=== PATIENT | female | born 1960 | race Caucasian/White ===

== ENCOUNTER 2019-02-25 16:24 | Emergency (ER) | payer OTHER ==
[~2019-02-25] VITALS: Wt 64.0 kg
[~2019-02-25 16:24] MED LIST: CLIN300C10 PO; DIPH1TAB PO; IBUP-1542 PO; NAPR-688 PO; RANI150T35 PO
[2019-02-25] MEDS ORDERED: FAMOTIDINE 20 MG INJ IV STA (17:44)
[2019-02-25] MEDS ORDERED: LIDOCAINE/MYLANTA 40 ML BTL PO STA (17:44)
[2019-02-25] MEDS ORDERED: SOD CHLORIDE 0.9% 1,000 ML IV STA (17:44)
[2019-02-25] MEDS ORDERED: morphine 4 MG/ML VIAL IV STA (17:44)
[2019-02-25] MEDS ORDERED: ONDANSETRON 4 MG INJ IV STA (17:44)
[2019-02-25] MEDS ORDERED: BELLADONNA/PHENOBARBITAL TAB PO STA (17:44)
[2019-02-25] MEDS ORDERED: SOD CHLORIDE 0.9% 100 ML ONE (18:49)
[2019-02-25] MEDS ORDERED: IOHEXOL 300MG/ML 150 ML BTL ONE (18:49)
--- NOTE | 2019-02-25 21:04 | ERD ---
ER Documentation Chief Complaint Chief Complaint ap x 6 days HPI This is a 58-year-old female that states she has no past medical history. She presents to the emergency department complaining of abdominal pain for the past 6 days. She states the pain began in the epigastric region and was a retrosternal burning-like pain. The pain starts progressed to the right lower quadrant several hours prior to arrival. She had no fevers or shaking or chills. She denies any diarrhea or constipation. The patient quit tobacco 8 months ago. She denies any hemoptysis hematemesis or melanotic stools. No recent antibiotics or hospitalizations. No swelling of her lower extremities. She states that there is no alleviating or exacerbating factors to the pain. Is it is intermittent. She has not taken any analgesic medication prior to arrival. ROS All systems reviewed and are negative except as per history of present illness. Medications Home Meds Active Scripts Sucralfate* (Carafate*) 1 Gm Tab, 1 GM PO AC MEALS AND BEDTIME for 30 Days, TAB Prov:JANEL OCHOA MD 02/25/19 Naproxen* (Naproxen*) 500 Mg Tablet, 500 MG PO BID PRN for PAIN, #10 TAB Prov:PAPI DUKE DO 06/07/18 Diphenoxylate HCl/Atropine (Lomotil 2.5-0.025 mg Tablet) 1 Each Tablet, 1 TAB PO Q6H PRN for DIARRHEA, #10 TAB Prov:PAPI DUKE DO 06/07/18 Ibuprofen* (Motrin*) 600 Mg Tab, 600 MG PO Q6, #30 TAB Prov:SCAR VALLES PA-C 03/27/18 Clindamycin Hcl* (Clindamycin Hcl*) 300 Mg Capsule, 300 MG PO TID for 10 Days, CAP Prov:SCAR VALLES PA-C 03/27/18 Ranitidine Hcl* (Zantac*) 150 Mg Tablet, 150 MG PO BID PRN for EPIGASTRIC PAIN, #30 TAB Prov:HEIDY SHAFFER DO 11/26/17 Allergies Allergies: Coded Allergies: Penicillins (Verified Allergy, Unknown, 11/26/17) PMhx/Soc History of Surgery: Yes () Anesthesia Reaction: No Hx Neurological Disorder: No Hx Respiratory Disorders: No Hx Cardiac Disorders: No Hx Psychiatric Problems: No Hx 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 Well-nourished. HEENT:Normocephalic. Atraumatic.Pupils were equal round reactive to light. Moist mucous membranes.No tonsillar exudates. Neck: No nuchal rigidity. No lymphadenopathy. No posterior cervical spine tenderness or step-offs. Respiratory: Not using accessory muscles of respiration.Lungs were clear to auscultation bilaterally. No rhonchi. No rales. No wheezing. Cardiovascular: Regular rate regular rhythm.No murmurs. No rubs were appreciated.S1, S2 normal. Distal pulses are palpable 2+ bilaterally. GI: Abdomen was soft. Epigastric tenderness. Tenderness in the right lower quadrant nonspecific over McBurney's point. Psoas sign negative . obturator sign negative. Non Distended. No pulsatile abdominal masses or bruits. No rebound. No guarding. Bowel sounds were present and normal. Muscle skeletal: Full range of motion of both the upper and lower extremities bilaterally.Normal muscle tone.No assymetrical calf tenderness or swelling. Skin: No petechia, no purpura. No lesions on the palms or the soles of the feet. No maculopapular rash. NEURO: Patient was alert, awake, orientated x3.No facial droop. Gait observed and normal with no ataxia.Speech had regular rate and rhythm. No focal neurological deficits. Result Diagram: 02/25/19174902/25/191749 Results 24 hrs Laboratory Tests Test 02/25/19 17:50 White Blood Count 6.2 10^3/ul Red Blood Count 4.04 10^6/ul Hemoglobin 11.7 g/dl Hematocrit 36.8 % Mean Corpuscular Volume 91.1 fl Mean Corpuscular Hemoglobin 29.0 pg Mean Corpuscular Hemoglobin Concent 31.8 g/dl Red Cell Distribution Width 13.2 % Platelet Count 210 10^3/UL Mean Platelet Volume 11.2 fl Immature Granulocytes % 0.300 % Neutrophils % 53.6 % Lymphocytes % 32.4 % Monocytes % 8.4 % Eosinophils % 4.7 % Basophils % 0.6 % Nucleated Red Blood Cells % 0.0 /100WBC Immature Granulocytes # 0.020 10^3/ul Neutrophils # 3.3 10^3/ul Lymphocytes # 2.0 10^3/ul Monocytes # 0.5 10^3/ul Eosinophils # 0.3 10^3/ul Basophils # 0.0 10^3/ul Nucleated Red Blood Cells # 0.0 10^3/ul Prothrombin Time 11.5 Sec Prothrombin Time Ratio 0.9 INR International Normalized Ratio 0.83 Activated Partial Thromboplast Time 26.4 Sec Urine Color YELLOW Urine Clarity SLIGHTLY CLOUDY Urine pH 5.0 Urine Specific [place] 1.035 Urine Ketones NEGATIVE mg/dL Urine Nitrite NEGATIVE mg/dL Urine Bilirubin 1+ mg/dL Urine Urobilinogen NEGATIVE mg/dL Urine Leukocyte Esterase TRACE Lorne/ul Urine Microscopic RBC 1 /HPF Urine Microscopic WBC 6 /HPF Urine Squamous Epithelial Cells MODERATE /HPF Urine Calcium Oxalate Crystals MANY /HPF Urine Bacteria FEW /HPF Urine Hemoglobin NEGATIVE mg/dL Urine Glucose NEGATIVE mg/dL Urine Total Protein NEGATIVE mg/dl Sodium Level 140 mmol/L Potassium Level 3.6 mmol/L Chloride Level 105 mmol/L Carbon Dioxide Level 29 mmol/L Anion Gap 6 Blood Urea Nitrogen 22 mg/dl Creatinine 0.92 mg/dl Est Glomerular Filtrat Rate mL/min > 60 mL/min Glucose Level 130 mg/dl Calcium Level 9.4 mg/dl Total Bilirubin 0.3 mg/dl Direct Bilirubin 0.00 mg/dl Indirect Bilirubin 0.3 mg/dl Aspartate Amino Transf (AST/SGOT) 25 IU/L Alanine Aminotransferase (ALT/SGPT) 24 IU/L Alkaline Phosphatase 108 IU/L Troponin I < 0.012 ng/ml Total Protein 6.6 g/dl Albumin 3.9 g/dl Globulin 2.70 g/dl Albumin/Globulin Ratio 1.44 Amylase Level 65 U/L Lipase 130 U/L Current Medications Medications Dose Sig/Elisa Start Time Status Last (Trade) Ordered Route PRN Stop Time Admin Dose Reason Admin Sodium 1,000 ml @ Q1H STAT 02/25/19 DC 02/25/19 Chloride 1,000 mls/hr IV 17:44 02/25/19 18:36 18:43 Morphine 4 mg ONCE STAT 02/25/19 DC 02/25/19 Sulfate IV 17:44 02/25/19 18:19 (morphine) 17:48 Ondansetron 4 mg ONCE STAT 02/25/19 DC 02/25/19 HCl (Zofran IV 17:44 02/25/19 18:19 Inj) 17:48 Famotidine 20 mg ONCE STAT 02/25/19 DC 02/25/19 (Pepcid Iv) IV 17:44 02/25/19 18:19 17:48 40 ml ONCE STAT 02/25/19 DC 02/25/19 Miscellaneous PO 17:44 02/25/19 18:19 Medication 17:48 (Gi Cocktail (2)) Belladonna/ 2 tab ONCE STAT 02/25/19 DC 02/25/19 Phenobarbital PO 17:44 02/25/19 18:19 () 17:48 IV Flush 10 ml STK-MED 02/25/19 DC 02/25/19 (NS 10 ml) ONCE .ROUTE 18:49 02/25/19 19:07 18:50 Sodium 100 ml @ ud STK-MED 02/25/19 DC 02/25/19 Chloride ONCE .ROUTE 18:49 02/25/19 19:07 18:50 Iohexol 150 ml STK-MED 02/25/19 DC 02/25/19 (Omnipaque ONCE .ROUTE 18:49 02/25/19 19:07 300mg/ ml) 18:50 Procedures/MDM The patient presented to the emergency department with epigastric pain. My differential diagnosis included but was not limited to abdominal aortic aneurysm, choledocholithiasis, gallstone ileus, renal colic, pyelonephritis, p ancreatitis, peptic ulcer disease, atypical myocardical infarction, mesenteric ischemia, GERD, pulmonary infarction. The patient was placed on a patient support representative, continuous pulse oximetry and IV access was established by nursing staff. An EKG was obtained to rule out myocardial ischemia. There was no elevation of LFTs to suggest ductal obstruction, cholangitis, cholecystiitis or hepatitis. Given that the urinalysis did not show bilirubinuria, my suspicion for common duct obstruction or hepatitis was low. 12 Lead EKG tracing ordered and reviewed by myself showed: Normal sinus rhythm of 77 bpm and no arrhythmia. SC interval normal. QRS duration normal. No ST segment elevation No ST segment depression. No changes consistent with acute ischemia. Ultrasound the gallbladder showed there is no evidence of cholelithiasis. I obtained a chest radiograph which showed no free air underneath the diaphragm reviewed by myself. Observation Note: Time: 4 hours Family Hx: No Hypertension Evaluation: Multiple exams showed no improvement of her symptoms. Therefore I did feel is necessary to obtain a CT scan of the patient's abdomen which showed no evidence of appendicitis or small bowel obstruction. I did indicate to the patient that I did not have an exact etiology into her symptoms but I cannot rule out peptic ulcer disease. I felt that she would benefit from an outpatient upper endoscopy and colonoscopy. She will be sent home with antacids. She had been given a GI cocktail the emergency department IV Pepcid. She did receive 1 dose of opiates in the emergency department. Patient had no peritoneal signs on repeat abdominal examinations. The patient was discharged home in fair condition. They were instructed to return to the emergency department at any time if there was any worsening of their condition. The patient stated they would follow up with their PCP in the next 24-48 hours to initiate a suitable medication regimen under the care of their PCP as well as to allow their PCP to monitor any drug reactions. The patient was discharged home with prescriptions after they gave informed consent to the new medication. They were also fully informed by myself on the adverse effects and adverse drug interactions in order to provide adequate safeguards to prevent possible adverse reactions to medications. Departure Diagnosis: Primary Impression: Epigastric pain Condition: JANEL Osullivan MD Feb 25, 2019 21:04
[2019-02-25] MEDS ORDERED: SUCR1TAB56 PO (21:05)
[2019-02-25 21:30] VITALS: BP 125/81; PULSE 69; RESP 14
== END 2019-02-25 21:49 | disposition home or self-care (01) ==
LOC: E/R 16:24
DX: R10.13 Epigastric pain (principal); F17.210 Nicotine dependence, cigarettes, uncomplicated; R40.2142 Coma scale, eyes open, spontaneous, at arrival to emergency department; R40.2362 Coma scale, best motor response, obeys commands, at arrival to emergency department; R40.2252 Coma scale, best verbal response, oriented, at arrival to emergency department
CPT/HCPCS: 36415; 71045; 74177; 76705; 80053; 81001; 82150; 83690; 84484; 85025; 85610; 85730; 87086; 93005; 96361; 96374; 96375; J2270; J2405; J7030; Q9967; Z7502; Z7610